=== PATIENT | female | born 1960 | race Caucasian/White ===

== ENCOUNTER 2016-07-01 14:14 | Emergency (ER) | payer MEDICAID ==
[~2016-07-01] VITALS: Ht 160 cm; Wt 66.5 kg
[~2016-07-01 14:14] MED LIST: ACET325T45 PO; ACET500C5 PO; CALC1TAB79 PO; CHOL100062 PO; DEXT1DRO6 OP; LORA-186 PO; MECL-77 PO; MECL12.574 PO; NAPH15DR OP; NASO17 NASAL; OMEG1CAP31 PO; OMEP20CA16 PO; ONDA4TAB8 PO; PRAV20TA63 PO; TRAM50TA2 PO
[2016-07-01 15:20] VITALS: Ht 160 cm; Wt 66.5 kg
[2016-07-01] MEDS ORDERED: HYDROCODONE/APAP (5/325) TAB PO ONE (17:00)
[2016-07-01] MEDS ORDERED: ONDANSETRON (ODT) 4 MG TAB ODT STA (17:01)
[2016-07-01] MEDS ORDERED: TRAM50TA2 PO (17:37)
[2016-07-01] MEDS ORDERED: ONDA4TAB8 PO (17:38)
[2016-07-01] MEDS ORDERED: ACET500C5 PO (17:38)
--- NOTE | 2016-07-01 17:43 | ERD ---
ER Documentation Chief Complaint Date/Time DATE: 07/01/16 TIME: 17:39 Chief Complaint HEADACHE,RIGHT JAW PAIN,NAUSEA. HPI This 56-year-old female who presents to the emergency department today complaining of right-sided jaw pain for the past 2 months. Patient states that yesterday it started giving her headache. States that she also has some neck pain and tightness. States that she feels nauseated when she gets the pain. States that the pain hurts to eat. States she saw her doctor and was told there was nothing wrong with her teeth. Denies any fevers or chills. ROS All systems reviewed and are negative except as per history of present illness. Medications Home Meds Active Scripts Ondansetron Hcl* (Zofran*) 4 Mg Tablet, 4 MG PO Q6H for NAUSEA AND/OR VOMITING, #30 TAB Prov:DOM STEVENSON PA-C 07/01/16 Acetaminophen* (Tylophen*) 500 Mg Capsule, 1 CAP PO Q6H Y for PAIN AND OR ELEVATED TEMP, #30 CAP Prov:DOM STEVENSON PA-C 07/01/16 Tramadol HCl (Tramadol HCl) 50 Mg Tablet, 50 MG PO Q4 Y for PAIN, #20 TAB Prov:DOM STEVENSON PA-C 07/01/16 Acetaminophen* (Tylophen*) 500 Mg Capsule, 1 CAP PO TID Y for PAIN, #30 CAP Prov:LUCIO BROWNING MD 01/08/16 Meclizine Hcl* (Antivert*) 12.5 Mg Tab, 12.5 MG PO Q6H Y for DIZZINESS, #20 TAB Prov:LUCIO BROWNING MD 01/08/16 Ondansetron Hcl* (Zofran*) 4 Mg Tablet, 4 MG PO Q8H Y for NAUSEA AND/OR VOMITING , #30 TAB Prov:LUCIO BROWNING MD 01/08/16 Tramadol HCl (Tramadol HCl) 50 Mg Tablet, 50 MG PO Q6 Y for PAIN, #20 TAB Prov:DEYSI BACON MD 12/25/15 Reported Medications Dextran 70/Hypromellose (Artificial Tears) 1 Each Droperette, 1-2 EACH OP Q4 12/25/15 Naphazoline Hcl/Phenir Mal (Naphcon-A Eye Drops) 15 Ml Drops, 1-2 DROP OP Q6, BOTTLE 12/25/15 Acetaminophen* (Acetaminophen*) 325 Mg Tablet, 1-2 TAB PO Q6 Y for PAIN AND OR ELEVATED TEMP, #30 TAB 12/25/15 Omeprazole* (Omeprazole*) 20 Mg Capsule.dr, 20 MG PO BID, #60 CAP 12/25/15 Meclizine Hcl* (Meclizine Hcl*) 25 Mg Tablet, 25 MG PO Q8H Y for DIZZINESS, TAB 12/25/15 Pravastatin Sodium* (Pravastatin Sodium*) 20 Mg Tablet, 20 MG PO HS, TAB 12/25/15 Loratadine* (Claritin*) 10 Mg Tablet, 10 MG PO DAILY, TAB 12/25/15 Calcium Carbonate/Vitamin D3 (Oysco 500+D Tablet) 1 Each Tablet, 1 EACH PO BID, TAB 12/25/15 Mometasone Furoate* (Nasonex*) 50 Mcg/[place] - 17 Gm [place].pump, 2 SPRAY NASAL DAILY, #1 BOTTLE TO EACH NOSTRIL 12/25/15 Cholecalciferol* (Vitamin D3*) 1,000 Unit Tablet, 1000 UNIT PO DAILY, TAB 12/25/15 [place]-3/Dha/Epa/Fish Oil (FISH OIL 1,000 MG SOFTGEL) 1 Each Capsule, 1 EACH PO BID, CAP 12/25/15 Allergies Allergies: Coded Allergies: naproxen (Verified Allergy, Unknown, 01/08/16) PMhx/Soc History of Surgery: Yes (gall bladder, HYSTERECTOMY, l KNEE SURGERY.) Anesthesia Reaction: No Hx Neurological Disorder: No Hx Respiratory Disorders: No Hx Cardiac Disorders: No Hx Psychiatric Problems: No Hx Miscellaneous Medical Probl: Yes (HIGH CHOLESTEROL ) Hx Alcohol Use: No Hx Substance Use: No Hx Tobacco Use: No Smoking Status: Never smoker Physical Exam Vitals Vital Signs Date Time Temp Pulse Resp B/P Pulse Ox O2 Delivery O2 Flow Rate FiO2 07/01/16 15:20 98.4 84 18 144/65 98 Physical Exam Const: No acute distress Head: Atraumatic Eyes: Normal Conjunctiva ENT: Ears TMs normal. Nose no drainage. Throat no erythema no exudate. Tenderness to palpation right side of jaw at TMJ joint Neck: Full range of motion..~ No meningismus. No midline tenderness. Bilateral paraspinal tenderness. Resp: Clear to auscultation bilaterally Cardio: Regular rate and rhythm, no murmurs Skin: No petechiae or rashes Neur: Awake and alert Psych: Normal Mood and Affect Results 24 hrs Current Medications Medications (Trade) Dose Ordered Sig/Justine Route PRN Reason Start Time Stop Time Status Last Admin Dose Admin Acetaminophen/ Hydrocodone Bitart ([place] (5/325)) 1 tab ONCE ONCE PO 07/01/16 17:00 07/01/16 17:01 DC 07/01/16 17:13 Ondansetron HCl (Zofran Odt) 4 mg ONCE STAT ODT 07/01/16 17:01 4 17:02 DC 07/01/16 17:13 Procedures/MDM This is a 56-year-old female who presents the emergency department today complaining of right-sided jaw pain for the past 2 months. On physical exam patient has tenderness at her TMJ joint and she also has pain with eating. Patient had indicated that is giving her headache as well as some neck pain and nausea. Patient indicated that no one has ever told her what is wrong with her jaw. Patient is afebrile and otherwise well-appearing. Do not feel that she requires a head CT scan at this time. Low suspicion for acute hemorrhage, mass , abscess. Patient has no swelling on the right side of her face and I do not feel that she requires further imaging at this time. Low suspicion for sepsis, deep space infection, abscess. Patient has full active range of motion in her neck and there has been no trauma I do not feel that she requires imaging at this time. Low suspicion for acute fracture dislocation. Patient symptoms at this time appear more related to her musculoskeletal sprain versus strain versus muscle spasm secondary to the pain that she is having in her jaw. 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 Patient was given [place] here in the emergency department as she is apparently allergic to Naprosyn. She is also given Zofran. I will give the patient a prescription for short course of tramadol, Tylenol and Zofran for home. She was instructed to follow back up with her primary care doctor or go back to her dentist. At this time the patient is stable for discharge and outpatient management. Patient should follow up with their PCP in the next 1-2 days. They may return to the emergency department sooner for any persistent or worsening of symptoms. Patient understood and agreed with the plan. Departure Diagnosis: Primary Impression: Jaw pain Condition: Fair Patient Instructions: Helping Your Temporomandibular Joint (TMJ) Heal, Tmj Syndrome Additional Instructions: Llame al doctor MAANA y josie maria t JOSE PARA DENTRO DE 1-2 EDDY.Dgale a la secretaria que nosotros le instruimos hacer esta jose.Avise o llame si hyman condicin se empeora antes de la jose. Regresa aqui si peor o no mejor. Take tramadol for severe pain otherwise take Tylenol Take Zofran for any nausea DOM STEVENSON PA-C Jul 01, 2016 17:43
== END 2016-07-01 17:49 | disposition home or self-care (01) ==
LOC: FTE 14:14
DX: R68.84 Jaw pain (principal); R11.0 Nausea
CPT/HCPCS: Z7502; Z7610; 99284

== ENCOUNTER 2017-01-30 15:26 | Emergency (ER) | payer MEDICAID ==
[~2017-01-30] VITALS: Ht 167.6 cm; Wt 64.5 kg
[~2017-01-30 15:26] MED LIST changes: +DIPH25CA6 PO
[2017-01-30 15:29] VITALS: Ht 167.6 cm; Wt 64.5 kg
--- NOTE | 2017-01-30 17:15 | ERD ---
ER Documentation Chief Complaint Chief Complaint Complains of chest pain since today HPI This is a 57-year-old female with a past medical history of hyperlipidemia, chronic dizziness, asthma/COPD, chronic neck spasm status post previous neck "injections", tongue fasiculations and headache on gabapentin for an unknown reason, chronic pains on tramadol who is presenting with chest pain that began for two weeks. The patient does endorse feeling anxious about her chronic pains , and she is not sure if this could be causing her chest discomfort. She does not report that it is worse with exercise or movement. It is a pinpoint pinching type pain to the left chest. The patient does endorse chronic dizziness associated with her neck spasm. This is unchanged today. She describes her headache as occipital, chronic and daily. The patient denies feeling sick recently. The patient denies fever or chills. The patient has had no vision changes. The patient does not endorse back pain. The patient has had no shortness of breath or trouble breathing. The patient denies nausea or vomiting. The patient denies abdominal pain or changes to bowel movements or urination. The patient has had no focal deficits. The patient has had no weakness or numbness or tingling to the face or extremities. ROS All systems reviewed and are negative except as per history of present illness. Medications Home Meds Active Scripts Diphenhydramine Hcl (Benadryl) 25 Mg Cap, 25 MG PO QID, #20 CAP Prov:NILA MENDEZ MD 11/07/16 Tramadol HCl (Tramadol HCl) 50 Mg Tablet, 50 MG PO Q4 Y for PAIN, #20 TAB Prov:NILA MENDEZ MD 11/07/16 Ondansetron Hcl* (Zofran*) 4 Mg Tablet, 4 MG PO Q6H for NAUSEA AND/OR VOMITING, #30 TAB Prov:DOM STEVENSON PA-C 07/01/16 Acetaminophen* (Tylophen*) 500 Mg Capsule, 1 CAP PO Q6H Y for PAIN AND OR ELEVATED TEMP, #30 CAP Prov:DOM STEVENSON PA-C 07/01/16 Tramadol HCl (Tramadol HCl) 50 Mg Tablet, 50 MG PO Q4 Y for PAIN, #20 TAB Prov:DOM STEVENSON PA-C 07/01/16 Acetaminophen* (Tylophen*) 500 Mg Capsule, 1 CAP PO TID Y for PAIN, #30 CAP Prov:LUCIO BROWNING MD 01/08/16 Meclizine Hcl* (Antivert*) 12.5 Mg Tab, 12.5 MG PO Q6H Y for DIZZINESS, #20 TAB Prov:LUCIO BROWNING MD 01/08/16 Ondansetron Hcl* (Zofran*) 4 Mg Tablet, 4 MG PO Q8H Y for NAUSEA AND/OR VOMITING , #30 TAB Prov:LUCIO BROWNING MD 01/08/16 Tramadol HCl (Tramadol HCl) 50 Mg Tablet, 50 MG PO Q6 Y for PAIN, #20 TAB Prov:DEYSI BACON MD 12/25/15 Reported Medications Dextran 70/Hypromellose (Artificial Tears) 1 Each Droperette, 1-2 EACH OP Q4 12/25/15 Naphazoline Hcl/Phenir Mal (Naphcon-A Eye Drops) 15 Ml Drops, 1-2 DROP OP Q6, BOTTLE 12/25/15 Acetaminophen* (Acetaminophen*) 325 Mg Tablet, 1-2 TAB PO Q6 Y for PAIN AND OR ELEVATED TEMP, #30 TAB 12/25/15 Omeprazole* (Omeprazole*) 20 Mg Capsule.dr, 20 MG PO BID, #60 CAP 12/25/15 Meclizine Hcl* (Meclizine Hcl*) 25 Mg Tablet, 25 MG PO Q8H Y for DIZZINESS, TAB 12/25/15 Pravastatin Sodium* (Pravastatin Sodium*) 20 Mg Tablet, 20 MG PO HS, TAB 12/25/15 Loratadine* (Claritin*) 10 Mg Tablet, 10 MG PO DAILY, TAB 12/25/15 Calcium Carbonate/Vitamin D3 (Oysco 500+D Tablet) 1 Each Tablet, 1 EACH PO BID, TAB 12/25/15 Mometasone Furoate* (Nasonex*) 50 Mcg/[place] - 17 Gm [place].pump, 2 SPRAY NASAL DAILY, #1 BOTTLE TO EACH NOSTRIL 12/25/15 Cholecalciferol* (Vitamin D3*) 1,000 Unit Tablet, 1000 UNIT PO DAILY, TAB 12/25/15 [place]-3/Dha/Epa/Fish Oil (FISH OIL 1,000 MG SOFTGEL) 1 Each Capsule, 1 EACH PO BID, CAP 12/25/15 Allergies Allergies: Coded Allergies: naproxen (Verified Allergy, Unknown, 01/08/16) PMhx/Soc History of Surgery: Yes (gall bladder, HYSTERECTOMY, l KNEE SURGERY.) Anesthesia Reaction: No Hx Neurological Disorder: Yes (? Cervical dystonia, chronic tongue fasciculations) Hx Respiratory Disorders: No Hx Cardiac Disorders: Yes (Hyperlipidemia) Hx Psychiatric Problems: No Hx Miscellaneous Medical Probl: No Hx Alcohol Use: No Hx Substance Use: No Hx Tobacco Use: No FmHx Family History: No coronary disease, No diabetes Physical Exam Vitals Vital Signs Date Time Temp Pulse Resp B/P Pulse Ox O2 Delivery O2 Flow Rate FiO2 01/30/17 18:56 97.1 61 20 124/75 100 Room Air 01/30/17 15:29 97.1 77 20 151/70 98 Physical Exam Const: No apparent distress, well-developed, well-nourished Head: Normocephalic, Atraumatic Eyes: Normal Conjunctiva. Extraocular movements intact. Pupils equal, round and reactive to light ENT: Normal External Ears, Nose and Mouth. Tongue fasiculations, previously reported, unchanged today. Neck: Neck tightness, but it is midline. No twisting of the neck of obvious dystonia at this time. Resp: Clear to auscultation bilaterally, No wheezes, rales or rhonchi Cardio: Regular rate and rhythm. No murmurs, rubs or gallops. Pinpoint tenderness to palpation of the left chest. Abd: Soft, non tender, non distended. Normal bowel sounds Skin: No petechiae or rashes Back: No midline tenderness. No CVA tenderness Ext: No cyanosis, or edema Neur: Awake and alert, oriented 4. Cranial nerves intact. No facial droop. Normal strength, sensation and coordination. Psych: Normal Mood and Affect Result Diagram: 01/30/17180401/30/171804 Results 24 hrs Laboratory Tests Test 01/30/17 18:05 White Blood Count 6.210^3/ul Red Blood Count 4.2010^6/ul Hemoglobin 12.5g/dl Hematocrit 37.2% Mean Corpuscular Volume 88.6fl Mean Corpuscular Hemoglobin 29.8pg Mean Corpuscular Hemoglobin Concent 33.6g/dl Red Cell Distribution Width 12.5% Platelet Count 45809^3/UL Mean Platelet Volume 9.9fl Neutrophils % 59.6% Lymphocytes % 30.8% Monocytes % 6.8% Eosinophils % 1.8% Basophils % 0.8% Nucleated Red Blood Cells % 0.0/100WBC Neutrophils # 3.710^3/ul Lymphocytes # 1.910^3/ul Monocytes # 0.410^3/ul Eosinophils # 0.110^3/ul Basophils # 0.110^3/ul Nucleated Red Blood Cells # 0.010^3/ul Sodium Level 142mmol/L Potassium Level 4.4mmol/L Chloride Level 105mmol/L Carbon Dioxide Level 28mmol/L Anion Gap 13 Blood Urea Nitrogen 11mg/dl Creatinine 0.63mg/dl Glucose Level 104mg/dl Calcium Level 8.8mg/dl Troponin I < 0.012ng/ml Current Medications Medications (Trade) Dose Ordered Sig/Justine Route PRN Reason Start Time Stop Time Status Last Admin Dose Admin Aspirin (Aspirin) 324 mg ONCE ONCE PO 01/30/17 17:30 01/30/17 17:31 DC 01/30/17 18:55 Procedures/MDM MDM The patient's presentation warrants further investigation. The patient will have a cardiac workup performed. She will be given aspirin in the emergency department. Based on her history, I have lower suspicion for acute coronary syndrome. The patient does not have symptoms consistent with an aortic dissection. Her lungs are clear and I do not suspect pneumothorax. She does not have infection type symptoms. I do not suspect a pneumonia. I do not hear a pleural or pericardial friction rub. I do not suspect pleuritis or pericarditis. The patient has not had any GI symptoms. I do not suspect an esophageal tear. LABS The patient's blood work was obtained and reviewed.no The patient's CBC shows no leukocytosis and no left shift. The patient is afebrile and does not appear systemically ill. I do not suspect a systemic infection. The patient is not anemic today. The patient's platelet count is unremarkable. The patient's BMP shows no signs of metabolic or electrolyte emergencies. The patient has unremarkable renal function testing. Her troponin is negative. EKG EKG read by me: Rate/Rhythm: Regular rate and rhythm at a rate of 73 bpm Intervals: Normal [place]: Normal Impression: No evidence of ischemia or arrhythmia IMAGING CXR FINDINGS: The heart is normal in size. The lungs are clear with no focal consolidations, pleural effusions, or pneumothorax. There are degenerative changes of the spine. IMPRESSION: No acute cardiopulmonary disease. Electronically viewed and signed by Nancy Sorto Physician on 01/30/2017 17:55 TREATMENT/DISPOSITION The patient's heart score is 2 for age and risk factors. I have low suspicion. Her troponin and EKG are normal. The patient may follow-up as an outpatient. At this time, I feel that the patient stable for discharge. The patient will need follow-up with his primary care physician in 2-3 days. The patient will be given strict precautions with which to return to the emergency department. The patient's blood pressure was elevated at greater than 120/80 while in the emergency department. The patient was otherwise stable with no evidence of hypertensive urgency or emergency or end organ damage. The patient does not require admission for blood pressure control. I have discussed with the patient the risks of hypertension. I have advised the patient to follow up with the primary care physician for outpatient monitoring and treatment for hypertension in 2-3 days. I have instructed the patient to return to the ER for any new or worsening symptoms including chest pain, shortness of breath, headache, blurred vision, confusion, nausea, vomiting or LOC. Disclaimer: Inadvertent spelling and grammatical errors are likely due to EHR/ dictation software use and do not reflect on the overall quality of patient care. Note that the electronic time recorded on this note does not necessarily reflect the actual time of the patient encounter. Departure Diagnosis: Primary Impression: Chest pain Chest pain type: unspecified Qualified Code: R07.9 - Chest pain, unspecified type Condition: KASSY Jacobs MD Jan 30, 2017 17:15
[2017-01-30] MEDS ORDERED: ASPIRIN 81 MG TAB PO ONE (17:30)
--- NOTE | 2017-01-30 17:55 | RADRPT ---
PROCEDURE: XR Chest. CLINICAL INDICATION: Chest Pain. TECHNIQUE: Single frontal view of the chest was obtained COMPARISON: Chest radiograph dated January 08, 2016. FINDINGS: The heart is normal in size. The lungs are clear with no focal consolidations, pleural effusions, or pneumothorax. There are degenerative changes of the spine. IMPRESSION: 1. No acute cardiopulmonary disease. RPTAT:AAJJ Nancy Sorto Physician Date Time Electronically viewed and signed by Nancy Sorto Physician on 01/30/2017 17:55 QL/
[2017-01-30 18:27] LABS: BASOPHIL # 0.1 10^3/ul (0.0-0.1); BASOPHILS % 0.8 % (0.0-2.0); EOSINOPHILS # 0.1 10^3/ul (0.0-0.5); EOSINOPHILS % 1.8 % (0.0-7.0); HEMATOCRIT 37.2 % (37.0-47.0); HEMOGLOBIN 12.5 g/dl (12.0-16.0); LYMPHOCYTES # 1.9 10^3/ul (0.8-2.9); LYMPHOCYTES % 30.8 % (15.0-51.0); MEAN CORPUSCULAR HEMOGLOBIN 29.8 pg (29.0-33.0); MEAN CORPUSCULAR HGB CONC 33.6 g/dl (32.0-37.0); MEAN CORPUSCULAR VOLUME 88.6 fl (82.0-101.0); MEAN PLATELET VOLUME 9.9 fl (7.4-10.4); MONOCYTE # 0.4 10^3/ul (0.3-0.9); MONOCYTES % 6.8 % (0.0-11.0); NEUTROPHIL # 3.7 10^3/ul (1.6-7.5); NEUTROPHILS % 59.6 % (39.0-77.0); PLATELET COUNT 246 10^3/UL (140-415); RED CELL DISTRIBUTION WIDTH 12.5 % (11.5-14.5); WHITE BLOOD COUNT 6.2 10^3/ul (4.8-10.8)
[2017-01-30 18:46] LABS: ANION GAP 13 (8-16); BLOOD UREA NITROGEN 11 mg/dl (7-20); CALCIUM 8.8 mg/dl (8.4-10.2); CARBON DIOXIDE 28 mmol/L (21-31); CHLORIDE 105 mmol/L (97-110); CREATININE 0.63 mg/dl (0.44-1.00); GLUCOSE 104 mg/dl (70-220); POTASSIUM 4.4 mmol/L (3.5-5.1); SODIUM 142 mmol/L (135-144)
[2017-01-30 18:59] LABS: TROPONIN-I < 0.012 ng/ml (0.00-0.12)
[2017-01-30 19:43] VITALS: BP 107/70; PULSE 65; RESP 19; TEMP 98.2
== END 2017-01-30 19:45 | disposition home or self-care (01) ==
LOC: E/R 15:26
DX: R07.9 Chest pain, unspecified (principal); R40.2142 Coma scale, eyes open, spontaneous, at arrival to emergency department; R40.2252 Coma scale, best verbal response, oriented, at arrival to emergency department; R40.2362 Coma scale, best motor response, obeys commands, at arrival to emergency department
CPT/HCPCS: 36415; 71010; 80048; 84484; 85025; Z7502; Z7610

== ENCOUNTER 2017-02-17 14:45 | Emergency (ER) | payer MEDICAID ==
[~2017-02-17] VITALS: Wt 64.2 kg
--- NOTE | 2017-02-17 17:23 | ERD ---
ER Documentation Chief Complaint Chief Complaint DIZZINESS X3 DAYS, HEADACHE HPI 57-year-old female, with history of chronic neck pain and acathisia presents to the emergency department complaining of 3 days with progressive dizziness. The dizziness is described as as a sensation of things spinning around her, associated with nausea. The symptoms are worsened by head lateral rotation. She had a similar episode last year that resolved spontaneously. She refers upper respiratory symptoms 1 week ago. Denies fevers, headaches, no weakness, no numbness, no tingling. ROS SYSTEMIC symptoms: no fever, chills, no night sweats, no weight loss EYE symptoms: No blurred vision, no eye discharge OTOLARYNGEAL symptoms: No hearing loss. No ear pain, no sore throat CARDIOVASCULAR symptoms: No chest pain or discomfort, no palpitations. PULMONARY symptoms: No dyspnea, no cough, no wheezing. GASTROINTESTINAL symptoms: No abdominal pain, no nausea, no vomiting, no diarrhea MUSCULOSKELETAL symptoms: No arthralgias, no muscle aches. NEUROLOGY symptoms: No confusion, no syncope, no numbness or tingling. SKIN: No rashes Medications Home Meds Active Scripts Lorazepam* (Ativan*) 0.5 Mg Tablet, 0.5 MG PO Q8H Y for DIZZINESS, #10 TAB Prov:ANN MIRELES MD 02/17/17 Diphenhydramine Hcl (Benadryl) 25 Mg Cap, 25 MG PO QID, #20 CAP Prov:NILA MENDEZ MD 11/07/16 Tramadol HCl (Tramadol HCl) 50 Mg Tablet, 50 MG PO Q4 Y for PAIN, #20 TAB Prov:NILA MENDEZ MD 11/07/16 Ondansetron Hcl* (Zofran*) 4 Mg Tablet, 4 MG PO Q6H for NAUSEA AND/OR VOMITING, #30 TAB Prov:DOM STEVENSON PA-C 07/01/16 Acetaminophen* (Tylophen*) 500 Mg Capsule, 1 CAP PO Q6H Y for PAIN AND OR ELEVATED TEMP, #30 CAP Prov:DOM STEVENSON PA-C 07/01/16 Tramadol HCl (Tramadol HCl) 50 Mg Tablet, 50 MG PO Q4 Y for PAIN, #20 TAB Prov:DOM STEVENSON PA-C 07/01/16 Acetaminophen* (Tylophen*) 500 Mg Capsule, 1 CAP PO TID Y for PAIN, #30 CAP Prov:LUCIO BROWNING MD 01/08/16 Meclizine Hcl* (Antivert*) 12.5 Mg Tab, 12.5 MG PO Q6H Y for DIZZINESS, #20 TAB Prov:LUCIO BROWNING MD 01/08/16 Ondansetron Hcl* (Zofran*) 4 Mg Tablet, 4 MG PO Q8H Y for NAUSEA AND/OR VOMITING , #30 TAB Prov:LUCIO BROWNING MD 01/08/16 Tramadol HCl (Tramadol HCl) 50 Mg Tablet, 50 MG PO Q6 Y for PAIN, #20 TAB Prov:DEYSI BACON MD 12/25/15 Reported Medications Dextran 70/Hypromellose (Artificial Tears) 1 Each Droperette, 1-2 EACH OP Q4 12/25/15 Naphazoline Hcl/Phenir Mal (Naphcon-A Eye Drops) 15 Ml Drops, 1-2 DROP OP Q6, BOTTLE 12/25/15 Acetaminophen* (Acetaminophen*) 325 Mg Tablet, 1-2 TAB PO Q6 Y for PAIN AND OR ELEVATED TEMP, #30 TAB 12/25/15 Omeprazole* (Omeprazole*) 20 Mg Capsule.dr, 20 MG PO BID, #60 CAP 12/25/15 Meclizine Hcl* (Meclizine Hcl*) 25 Mg Tablet, 25 MG PO Q8H Y for DIZZINESS, TAB 12/25/15 Pravastatin Sodium* (Pravastatin Sodium*) 20 Mg Tablet, 20 MG PO HS, TAB 12/25/15 Loratadine* (Claritin*) 10 Mg Tablet, 10 MG PO DAILY, TAB 12/25/15 Calcium Carbonate/Vitamin D3 (Oysco 500+D Tablet) 1 Each Tablet, 1 EACH PO BID, TAB 12/25/15 Mometasone Furoate* (Nasonex*) 50 Mcg/[place] - 17 Gm [place].pump, 2 SPRAY NASAL DAILY, #1 BOTTLE TO EACH NOSTRIL 12/25/15 Cholecalciferol* (Vitamin D3*) 1,000 Unit Tablet, 1000 UNIT PO DAILY, TAB 12/25/15 [place]-3/Dha/Epa/Fish Oil (FISH OIL 1,000 MG SOFTGEL) 1 Each Capsule, 1 EACH PO BID, CAP 12/25/15 Allergies Allergies: Coded Allergies: naproxen (Verified Allergy, Unknown, 01/08/16) PMhx/Soc History of Surgery: Yes (gall bladder, HYSTERECTOMY, l KNEE SURGERY.) Anesthesia Reaction: No Hx Neurological Disorder: Yes (? Cervical dystonia, chronic tongue fasciculations) Hx Respiratory Disorders: No Hx Cardiac Disorders: Yes (Hyperlipidemia) Hx Psychiatric Problems: No Hx Miscellaneous Medical Probl: No Hx Alcohol Use: No Hx Substance Use: No Hx Tobacco Use: No Smoking Status: Never smoker Physical Exam Vitals Vital Signs Date Time Temp Pulse Resp B/P Pulse Ox O2 Delivery O2 Flow Rate FiO2 02/17/17 15:01 97.9 70 19 160/68 99 Physical Exam Patient is in no acute distress, vital signs stable. Alert and fully oriented. EYES: PERRLA, EOMI, Sclera and conjunctiva appear normal. EARS: Canals clear, tympanic membranes WNL THROAT: Normal oropharynx. NECK: Supple, No lymphadenopathy. Full ROM without pain or tenderness. HEART: RRR, no rubs, murmurs, clicks or gallops. LUNGS: Clear to auscultation. ABDOMEN: Soft, non-tender without masses or hepatosplenomegaly. EXTREMITIES: No edema bilaterally. BACK: Full ROM, no deformity, normal back exam NEURO: Cranial nerves grossly intact, no motor or sensory deficit Procedures/MDM 57y/o female patient with history of acathisia, presents to the ED c/o spinning sensation for 3 days. Vital signs stable, Physical exam unremarkable. Differential diagnosis include but not limited to:Mnire's disease, vestibular neuronitis, migraine, vertigo, side effects of the medications, dehydration. 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 Physical examination and clinical presentation consistent most likely with positional vertigo. During the ED course the patient remained stable, no new complaints. Results and clinical impression discussed with patient who agrees with management. The patient is stable to be treated outpatient and will be discharged home with a Rx for Lorazepam, some side effects of prescribed medications (headache, rash, nausea, vomiting, diarrhea, drowsiness, habituation , bleeding, hypertension, interactions with other medications) were reviewed. The patient was instructed to follow up with the primary care provider in the next 48h. If symptoms persist, worsen or new symptoms develop, then patient should return to the ED immediately. Instructions explained and given directly by me to the patient in Welsh with acknowledgment and demonstrated understanding. Disclaimer: Inadvertent spelling and grammatical errors are likely due to EHR/ dictation software use and do not reflect on the overall quality of patient care. Also, please note that the electronic time recorded on this note does not necessarily reflect the actual time of the patient encounter. Departure Diagnosis: Primary Impression: Positional vertigo Condition: Stable Additional Instructions: Muchas susan por [facility] para hyman servicio. Esperamos que en hyman visita a la moreno de emergencia hyman problema medico haya sido solucionado y que se sienta mucho mejor. Para estar seguros que hyman mejoria sigue en proceso, le pedimos el favor de hacer maria t maame de seguimiento medico con hyman doctor primario en los proximos 2-4 jean. Lleve con usted estos documentos y las medicinas recetadas. Si bárbara sintomas empeoran y no puede boubacar a hyman doctor, por favor regrese a moreno de emergencia. En naya que usted no tenga un mdico de atencin primaria: Llame al mdico o clnica comunitaria de referencia que aparece abajo ariana las horas de consultorio para hacer maria t maame para que le vean. CLINICAS: [facility] [phone] [facility] [phone] [facility] [phone] [facility] [phone] [place] [phone] [facility]. [phone] MD Feb 17, 2017 17:23
[2017-02-17] MEDS ORDERED: LORA-441 PO (18:23)
[2017-02-17 18:35] VITALS: BP 121/58; PULSE 61; RESP 16; TEMP 98.1
== END 2017-02-17 18:36 | disposition home or self-care (01) ==
LOC: FTE 14:45
DX: H81.10 Benign paroxysmal vertigo, unspecified ear (principal)
CPT/HCPCS: 99283

== ENCOUNTER 2017-03-30 09:53 | Emergency (ER) | END 2017-03-30 10:18 | disposition home or self-care (01) ==

== ENCOUNTER 2017-04-01 12:27 | Emergency (ER) | END 2017-04-01 18:02 | disposition home or self-care (01) ==

== ENCOUNTER 2017-04-07 09:26 | Emergency (ER) | END 2017-04-07 19:14 | disposition home or self-care (01) ==

== ENCOUNTER 2018-01-15 14:02 | Emergency (ER) | END 2018-01-15 15:17 | disposition home or self-care (01) ==

== ENCOUNTER 2018-10-16 17:50 | Emergency (ER) | payer MEDICAID ==
[~2018-10-16] VITALS: Ht 160 cm; Wt 67.4 kg
[~2018-10-16 17:50] MED LIST changes: -ACET325T45 PO; +ACET500T76 PO; -CALC1TAB79 PO; -CHOL100062 PO; +D-ME473S2 PO; -DEXT1DRO6 OP; -DIPH25CA6 PO; +DOCU-144 PO; +GABA100C14 PO; +HYDR25SU23 PR; -LORA-186 PO; -MECL-77 PO; -MECL12.574 PO; -NAPH15DR OP; -NASO17 NASAL; +NITR-58 PO; -OMEG1CAP31 PO; -OMEP20CA16 PO; -ONDA4TAB8 PO; -PRAV20TA63 PO
[2018-10-16 17:55] VITALS: BP 148/69; PULSE 79; RESP 18; Ht 160 cm; Wt 67.4 kg
[2018-10-16] MEDS ORDERED: ACETAMINOPHEN 325 MG TAB PO ONE (18:30)
--- NOTE | 2018-10-16 18:45 | ERD ---
ER Documentation Chief Complaint Chief Complaint ear pain w/cough & restal pain x3 days HPI 58-year-old female presents with multiple complaints. She has had a cough and left ear pain for last 3 days. She denies fevers, vomiting, shortness of breath or chest pain. She has an additional complaint of rectal pain with bowel movements. History of constipation. She denies bleeding. ROS All systems reviewed and are negative except as per history of present illness. Medications Home Meds Active Scripts Dextromethorphan Hb-Promethazine Hcl* (Promethazine DM* Syrup) 473 Ml Syrup, 5 ML PO Q6 PRN for COUGH for 5 Days, ML Prov:NILA MENDEZ MD 10/16/18 Acetaminophen* (Tylophen*) 500 Mg Capsule, 1 CAP PO Q6H PRN for PAIN AND OR ELEVATED TEMP, #20 CAP Prov:NILA MENDEZ MD 10/16/18 Docusate Sodium* (Colace*) 100 Mg Capsule, 100 MG PO BID, #60 CAP Prov:NILA MENDEZ MD 10/16/18 Acetaminophen* (Tylophen*) 500 Mg Capsule, 1 CAP PO Q6H PRN for PAIN AND OR E LEVATED TEMP, #15 CAP Prov:NILA MENDEZ MD 01/15/18 Dextromethorphan Hb-Promethazine Hcl* (Promethazine DM* Syrup) 473 Ml Syrup, 5 ML PO Q6 PRN for COUGH for 5 Days, ML Prov:NILA MENDEZ MD 01/15/18 Tramadol HCl (Tramadol HCl) 50 Mg Tablet, 50 MG PO Q4 PRN for PAIN, #10 TAB Prov:DEYSI BACON MD 04/07/17 Nitrofurantoin Monohyd Macrocr* (Macrobid*) 100 Mg Capsr, 100 MG PO BID for 7 Days, CAP Prov:LIBIA TELLES MD 04/01/17 Docusate Sodium* (Colace*) 100 Mg Capsule, 100 MG PO TID, #30 CAP Prov:LIBIA TELLES MD 04/01/17 Reported Medications Acetaminophen (PAIN & FEVER) 500 Mg Tablet, 500 MG PO Q6H, TAB 04/07/17 Gabapentin* (Gabapentin*) 100 Mg Capsule, 100 MG PO TID, #90 CAP 04/07/17 Allergies Allergies: Coded Allergies: naproxen (Verified Allergy, Unknown, 01/15/18) PMhx/Soc History of Surgery: Yes (gall bladder, HYSTERECTOMY, LT KNEE SURGERY.) Anesthesia Reaction: No Hx Neurological Disorder: Yes (Cervical dystonia, chronic tongue fasciculations) Hx Respiratory Disorders: No Hx Cardiac Disorders: Yes (Hyperlipidemia, HTN ) Hx Psychiatric Problems: Yes (anxiety) Hx Miscellaneous Medical Probl: No Hx Alcohol Use: No Hx Substance Use: No Hx Tobacco Use: No FmHx Family History: No diabetes, No coronary disease, No other Physical Exam Vitals Vital Signs Date Temp Pulse Resp B/P (MAP) Pulse Ox O2 O2 Flow FiO2 Time Delivery Rate 10/16/18 98.2 79 18 148/69 98 17:55 (95) Physical Exam Const: No acute distress Head: Atraumatic Eyes: Normal Conjunctiva ENT: Normal External Ears, Nose and Mouth. TMs normal. Oropharynx normal. Neck: Full range of motion. No meningismus. Resp: Clear to auscultation bilaterally. Dry cough without rales, wheezing or retractions. Cardio: Regular rate and rhythm, no murmurs Abd: Soft, non tender, non distended. Normal bowel sounds. Rectal exam with armhole feller handstitching machine shows no hemorrhoids, external lesions, bleeding, gross blood or melanotic stools. Skin: No petechiae or rashes Back: No midline or flank tenderness Ext: No cyanosis, or edema Neur: Awake and alert Psych: Normal Mood and Affect Results 24 hrs Current Medications Medications Dose Sig/Justine Start Time Status Last (Trade) Ordered Route PRN Stop Time Admin Dose Reason Admin 650 mg ONCE ONCE 10/16/18 DC 10/16/18 Acetaminophen PO 18:30 10/16/18 18:32 (Tylenol 18:31 Tab) Procedures/MDM Patient presents with multiple complaints including URI symptoms, left ear pain, rectal pain with essentially normal exam except for findings suggestive of a viral URI. We will treat with Tylenol, Promethazine DM, Colace, recommendations for primary care follow-up and return precautions for fevers, vomiting abdominal pain, shortness of breath, blood, new or worsening symptoms. The patient was stable with no new complaints during the ER course. Clinically, there is no current evidence to suggest meningitis, sepsis, acute abdomen, pneumonia, stroke, acute coronary syndrome, pulmonary embolism, aortic dissection or any other emergent condition appearing to require further evaluation or hospitalization. Patient counseled regarding my diagnostic impression and care plan. Prior to discharge all questions answered. Pt agrees with treatment plan and understands strict return precautions. Pt is instructed to follow up with primary care provider within 24-48 hours. Precautionary instructions provided including instructions to return to the ER if not improving or for any worsening or changing symptoms or concerns. Disclaimer: Inadvertent spelling and grammatical errors are likely due to EHR/dictation software use and do not reflect on the overall quality of patient care. Also, please note that the electronic time recorded on this note does not necessarily reflect the actual time of the patient encounter. Departure Diagnosis: Primary Impression: Constipation Constipation type: unspecified constipation type Qualified Codes: K59.00 - Constipation, unspecified Additional Impressions: URI, acute Left ear pain Condition: Stable Patient Instructions: Constipation (Adult), Uri, Viral, No Abx (Adult) Additional Instructions: Probablamente un virus que dura 2-4 jean. cheque otro vez en el proximo gely para mas simptomas- vomito, dolor, roman, problemas con respirando, o con hyman doctor primario. NILA MENDEZ MD Oct 16, 2018 18:45
== END 2018-10-16 19:43 | disposition home or self-care (01) ==
LOC: FTE 17:50
DX: K59.00 Constipation, unspecified (principal); I10 Essential (primary) hypertension; J06.9 Acute upper respiratory infection, unspecified; H92.02 Otalgia, left ear
CPT/HCPCS: Z7502; Z7610; 99284

== ENCOUNTER 2018-10-26 11:04 | Emergency (ER) | payer MEDICAID ==
[~2018-10-26] VITALS: Ht 160 cm; Wt 67.0 kg
[2018-10-26 11:07] VITALS: Ht 160 cm; Wt 67.0 kg
--- NOTE | 2018-10-26 11:36 | ERD ---
ER Documentation Chief Complaint Chief Complaint RECTAL PAIN X3 DAYS, HX OF HEMORRHOIDS HPI 58-year-old female who has a history of constipation and anal fissure and hemorrhoids complaining of 3 days of rectal pain. She was seen here last week and given Colace which she does state is helping but she states in the last 3 days she is noticed some blood on the paper when she wipes and has had pain. No fever. No vomiting. She states she has had the symptoms in the past and has had good relief with suppositories. ROS All systems reviewed and are negative except as per history of present illness. Medications Home Meds Active Scripts Dextromethorphan Hb-Promethazine Hcl* (Promethazine DM* Syrup) 473 Ml Syrup, 5 ML PO Q6 PRN for COUGH for 5 Days, ML Prov:NILA MENDEZ MD 10/16/18 Acetaminophen* (Tylophen*) 500 Mg Capsule, 1 CAP PO Q6H PRN for PAIN AND OR ELEVATED TEMP, #20 CAP Prov:NILA MENDEZ MD 10/16/18 Docusate Sodium* (Colace*) 100 Mg Capsule, 100 MG PO BID, #60 CAP Prov:NILA MENDEZ MD 10/16/18 Acetaminophen* (Tylophen*) 500 Mg Capsule, 1 CAP PO Q6H PRN for PAIN AND OR ELEVATED TEMP, #15 CAP Prov:NILA MENDEZ MD 01/15/18 Dextromethorphan Hb-Promethazine Hcl* (Promethazine DM* Syrup) 473 Ml Syrup, 5 ML PO Q6 PRN for COUGH for 5 Days, ML Prov:NILA MENDEZ MD 01/15/18 Tramadol HCl (Tramadol HCl) 50 Mg Tablet, 50 MG PO Q4 PRN for PAIN, #10 TAB Prov:DEYSI BACON MD 04/07/17 Nitrofurantoin Monohyd Macrocr* (Macrobid*) 100 Mg Capsr, 100 MG PO BID for 7 Days, CAP Prov:LIBIA TELLES MD 04/01/17 Docusate Sodium* (Colace*) 100 Mg Capsule, 100 MG PO TID, #30 CAP Prov:LIBIA TELLES MD 04/01/17 Reported Medications Acetaminophen (PAIN & FEVER) 500 Mg Tablet, 500 MG PO Q6H, TAB 04/07/17 Gabapentin* (Gabapentin*) 100 Mg Capsule, 100 MG PO TID, #90 CAP 04/07/17 Allergies Allergies: Coded Allergies: naproxen (Verified Allergy, Unknown, 01/15/18) PMhx/Soc History of Surgery: Yes (gall bladder, HYSTERECTOMY, LT KNEE SURGERY.) Anesthesia Reaction: No Hx Neurological Disorder: Yes (Cervical dystonia, chronic tongue fasciculations) Hx Respiratory Disorders: No Hx Cardiac Disorders: Yes (Hyperlipidemia, HTN ) Hx Psychiatric Problems: Yes (anxiety, depression) Hx Miscellaneous Medical Probl: No Hx Alcohol Use: No Hx Substance Use: No Hx Tobacco Use: No FmHx Family History: No diabetes Physical Exam Vitals Vital Signs Date Temp Pulse Resp B/P (MAP) Pulse Ox O2 O2 Flow FiO2 Time Delivery Rate 10/26/18 98.2 86 17 136/63 98 11:07 (87) Physical Exam INITIAL VITAL SIGNS: Reviewed by me GENERAL: Awake, alert and oriented x 4, well appearing, nontoxic, speaking in full sentences. No acute distress HEAD: Atraumatic NECK: Supple. No masses. Full range of motion. No meningismus. No midline tenderness. EYES: EOMI. PERRL. RESPIRATORY: Clear to auscultation bilaterally. Symmetric chest wall rise. No wheezing or rales. No accessory muscle use. CV: Regular rate and rhythm. No murmurs, rubs, or gallops. ABDOMEN: Soft, non-distended. Nontender. Negative [place]. Negative Mc[place]neys point tenderness. No CVA tenderness bilaterally. No guarding. No rebound. Rectal: done with RAMONA Mohan, small nonthrombosed hemorrhoid, nonbleeding, no fissures Procedures/MDM Patient is here for rectal pain. She does have small hemorrhoid. Low suspicion for rectal abscess. She is had the symptoms before. There is no bleeding at this time. She already has prescription for Colace she was given prescription for Anusol. Patient counseled regarding my diagnostic impression and care plan. Prior to discharge all questions answered. Pt agrees with treatment plan and understands strict return precautions. Pt is instructed to follow up with primary care provider within 24-48 hours. Precautionary instructions provided including instructions to return to the ER if not improving or for any worsening or changing symptoms or concerns. Departure Diagnosis: Primary Impression: Acute hemorrhoid Additional Impression: Rectal pain Condition: Stable JAKUB WINTERS PA-C Oct 26, 2018 11:36
[2018-10-26 12:57] VITALS: BP 112/58; PULSE 67; RESP 18
== END 2018-10-26 12:57 | disposition home or self-care (01) ==
LOC: FTE 11:04
DX: K64.9 Unspecified hemorrhoids (principal); I10 Essential (primary) hypertension
CPT/HCPCS: 99284